=== PATIENT | female | born 1955 | race Caucasian/White ===

== ENCOUNTER 2017-05-19 06:06 | Inpatient (IN) | payer OTHER ==
[2017-05-19] VITALS (7 sets, daily range): BP systolic 116–153; BP diastolic 66–91
[~2017-05-19] VITALS: Ht 4333 cm; Wt 2.4 kg
[~2017-05-19 06:06] MED LIST: ANAPROX DS550 MG PO; VICODIN 5/500 505 MG PO
[2017-05-19 06:47] LABS: BASO % 0.7 % (0.0-1.0); EOS # 0.2 10*3/uL (0.0-0.4); EOS % 3.2 % (1.0-4.0); HEMATOCRIT 39.9 % (37.0-47.0); HEMOGLOBIN 13.5 g/dl (12.0-16.0); LYMPH # 2.6 10*3/uL (1.3-4.4); LYMPH % 43.6 % (27.0-41.0); MEAN CELL VOLUME 91.9 fl (81.0-99.0); MEAN CORPUSCULAR HGB 31.1 pg (27.0-31.0); MEAN CORPUSCULAR HGB CONC 33.8 g/dl (33.0-37.0); MEAN PLATELET VOLUME 10.1 fl (9.6-12.3); MONO # 0.5 10*3/uL (0.1-1.0); MONO % 8.4 % (3.0-9.0); NEUT # 2.6 10*3/uL (2.3-7.9); NEUT % 43.9 % (47.0-73.0); PLATELET COUNT AUTOMATED 242 10*3/uL (130-400); RED BLOOD COUNT 4.34 10*6/uL (4.10-5.10); RED CELL DISTRI WIDTH 11.6 % (0-14.5)
[2017-05-19 06:59] LABS: ACT PARTIAL THROMBO TIME 25.3 SECONDS (20.8-31.5)
[2017-05-19 07:03] LABS: ALBUMIN 3.7 gm/dl (3.1-4.5); ALKALINE PHOSPHATASE 70 U/L (45-117); BUN 11 mg/dl (7-24); CHLORIDE 106 mmol/L (98-107); POTASSIUM 3.8 mmol/L (3.5-5.1); SGOT/AST 12 IU/L (3-35); SGPT/ALT 21 U/L (12-78); SODIUM 141 mmol/L (136-145); TOTAL PROTEIN 7.2 gm/dL (6.4-8.2)
[2017-05-19 07:07] LABS: TROPONIN I < 0.015 ng/ml (<0.045)
--- NOTE | 2017-05-19 07:53 | NUR ---
LYING IN BED WITH COOL WASHCLOTH ON FOREHEAD VISITING WITH FAMILY. NO CHEST PAIN BUT DOES C/O BACK PAIN, LEFT SIDE. ALSO HAS CONTINUED C/O ARMS "TINGLING". NO DISTRESS. APPEARS RELAXED. RESPS EASY AND NON LABORED.
--- NOTE | 2017-05-19 08:36 | NUR ---
AMBULATED TO BATHROOM, NO PROBLEMS.
--- NOTE | 2017-05-19 09:07 | NUR ---
RESTING IN BED. NO COMPLAINTS.
[2017-05-19 09:30] LABS: BILIRUBIN NEGATIVE (NEGATIVE); BLOOD NEGATIVE (NEGATIVE); CLARITY CLEAR (CLEAR); COLOR STRAW (YELLOW); GLUCOSE NEGATIVE (NEGATIVE); KETONE NEGATIVE (NEGATIVE); LEUKO ESTERASE 1+ (NEGATIVE); NITRITE NEGATIVE (NEGATIVE); SPECIFIC GRAVITY <= 1.005 (1.005-1.030); UROBILINOGEN 0.2 E.U./dl (0.2-1.0)
[2017-05-19 09:46] LABS: BACTERIA TRACE
--- NOTE | 2017-05-19 10:03 | NUR ---
PT C/O DIZZINESS AND NAUSEA. VSS. NO DISTRESS.
--- NOTE | 2017-05-19 10:36 | NUR ---
BED IS NOT CLEAN, RN WILL CALL WHEN BED/ROOM IS READY.
--- NOTE | 2017-05-19 11:00 | NUR ---
REPORT GIVEN TO Michelle HYATT RN
--- NOTE | 2017-05-19 12:00 | NUR ---
A 62, admitted to 4E, under the services of ZAID Briggs DO with a diagnosis of DIZZINESS, UNSTABLE GAIT. Chief complaint is CHEST PAIN. Patient arrived via ambulatory from ER. Monitor applied. Initial assessment completed. Vital signs taken and recorded. ZAID BRIGGS DO notified of admission to the unit. Orders received. See assessment for past medical history, medications and allergies. Patient and/or family orieNted to unit. visitation policy reviewed. Clothing/patient valuable form completed. LESLI TONEY
--- NOTE | 2017-05-19 12:36 | NUR ---
PT STATES THAT SHE DOES NOT TAKE ANY SCHEDULED MEDICATIONS AT HOME
--- NOTE | 2017-05-19 20:53 | NUR ---
PATIENT STATED DURING ASSESSMENT THAT SHE HAS BEEN UNDER ALOT OF STRESS LATELY SHE TAKES CARE OF HER ELDERLY MOTHER AT HER HOUSE AND JUST HAD A FRIEND WHO WAS MURDERED TUESDAY. THAT MAYBE SHE DID HAVE A PANIC ATTACK.
[2017-05-20] VITALS: BP 118/65
[2017-05-20 07:34] LABS: CHLORIDE 108 mmol/L (98-107); POTASSIUM 3.9 mmol/L (3.5-5.1); SODIUM 144 mmol/L (136-145)
[2017-05-20 07:38] LABS: BASO % 0.6 % (0.0-1.0); EOS # 0.1 10*3/uL (0.0-0.4); EOS % 1.5 % (1.0-4.0); HEMATOCRIT 38.7 % (37.0-47.0); HEMOGLOBIN 12.9 g/dl (12.0-16.0); LYMPH # 2.5 10*3/uL (1.3-4.4); LYMPH % 38.5 % (27.0-41.0); MEAN CELL VOLUME 94.6 fl (81.0-99.0); MEAN CORPUSCULAR HGB 31.5 pg (27.0-31.0); MEAN CORPUSCULAR HGB CONC 33.3 g/dl (33.0-37.0); MEAN PLATELET VOLUME 10.3 fl (9.6-12.3); MONO # 0.5 10*3/uL (0.1-1.0); MONO % 8.3 % (3.0-9.0); NEUT # 3.3 10*3/uL (2.3-7.9); NEUT % 50.9 % (47.0-73.0); PLATELET COUNT AUTOMATED 229 10*3/uL (130-400); RED BLOOD COUNT 4.09 10*6/uL (4.10-5.10); RED CELL DISTRI WIDTH 11.6 % (0-14.5); WHITE BLOOD COUNT 6.5 10*3/uL (4.8-10.8)
[2017-05-20 07:56] LABS: BUN 7 mg/dl (7-24); CHOLESTEROL 191 mg/dL (<200); CREATININE 0.93 mg/dL (0.55-1.02); HDL CHOLESTEROL 81 mg/dl (40-60); LDL CHOLESTEROL 96 mg/dL (9-159); TRIGLYCERIDES 69 mg/dl (<150); VLDL CHOLESTEROL 14 mg/dL (6-40)
[2017-05-20 08:00] VITALS: BP 107/78
--- NOTE | 2017-05-20 09:00 | NUR ---
Quarter Backer in to talk to patient. Patient states lives at home with and her mom. There are few steps in the home. 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 YUE PRICE
--- NOTE | 2017-05-20 09:03 | NUR ---
PHYSICAL THERAPY Chart review done. Pt off floor for testing. Lizbet Thompson, PT
[2017-05-20 09:07] LABS: VITAMIN D, 25-HYDROXY 28.2 ng/mL (30-100)
[2017-05-20] MEDS ORDERED: B12,B-12,B 12500 MC1 PO (10:12)
[2017-05-20] MEDS ORDERED: VITAMIN D-32000 UNI1 PO (10:12)
[2017-05-20] MEDS ORDERED: CIPRO500 MG PO (10:12)
--- NOTE | 2017-05-20 11:38 | NUR ---
Discharge instructions reviewed with patient/family. Patient receptive and verbalizes understanding. Follow-up care arranged. Written instructions given to patient/family. KIP STALEY
== END 2017-05-20 11:38 | disposition home or self-care (01) | DRG 312 ==
LOC: ED 06:06 → EDHOLD 10:28 → 4E 10:28
PROVIDERS: Emergency Medicine; Internal Medicine Nephrology; Student in an Organized Health Care Education/Training Program; ADMIT Internal Medicine
DX: R55 Syncope and collapse (principal); D70.9 Neutropenia, unspecified; N39.0 Urinary tract infection, site not specified; G89.29 Other chronic pain; R73.9 Hyperglycemia, unspecified; E55.9 Vitamin D deficiency, unspecified; E53.8 Deficiency of other specified B group vitamins; Z90.49 Acquired absence of other specified parts of digestive tract; Z90.710 Acquired absence of both cervix and uterus; Z91.018 Allergy to other foods